=== PATIENT | female | born 1980 | race Two or more races ===

== ENCOUNTER 2017-08-06 14:22 | Outpatient (CLI) ==
--- NOTE | 2017-08-06 15:34 | US ---
EXAM: Transvaginal pelvic ultrasound HISTORY: Pain for 4 months with a intrauterine device COMPARISON: None TECHNIQUE: Transvaginal pelvic ultrasound was performed to better evaluate the structures. Limited Doppler was provided. FINDINGS: The uterus measures 8.3 x 4.6 x 4.8 cm with heterogeneous appearance. The endometrium geoffrey sures 0.6 cm in thickness. Cervix is normal in appearance. The right ovary measures 3.1 x 2.2 x 1.7 cm. There is normal color Doppler flow. There is an anechoi c cyst measuring 1.8 x 1.5 x 1.7 cm. The left ovary measures 2.9 x 1.7 1.7 cm. There is normal color Doppler flow. There are multiple foll icles, the largest measuring 0.9 x 0.7 x 0.9 cm. IMPRESSION: 1. Heterogeneous appearance of the uterus with no distinct fibroid and an echogenic intrauterine dev ice in place. 2. Bilateral ovarian follicles versus cysts.
== END 2017-08-06 14:23 | disposition home or self-care (01) ==
LOC: RAD 14:22
PROVIDERS: ATTEND Family Medicine
DX: R10.2 Pelvic and perineal pain (principal)